=== PATIENT | female | born 1945 | race Caucasian/White ===

== ENCOUNTER 2021-12-22 13:03 | Outpatient (CLI) | payer MEDICARE, MEDICAID | END 2021-12-22 13:04 | disposition home or self-care (01) | LOC: CSHMAMMO 13:03 | PROVIDERS: ATTEND Family Medicine | DX: Z12.31 Encounter for screening mammogram for malignant neoplasm of breast (principal); R92.1 Mammographic calcification found on diagnostic imaging of breast; N63.20 Unspecified lump in the left breast, unspecified quadrant | CPT/HCPCS: 77063; 77067 ==

== ENCOUNTER 2022-01-09 17:19 | Observation (INO) | payer MEDICARE, MEDICAID ==
[2022-01-09 18:05] LABS: #Eosinphils 0.1 10x3/uL (0.0-0.5); #Neutrophils 6.6 10x3/uL (1.5-8.4); %Basophils 0.4 % (0.0-2.0); %Eosinophils 1.3 % (0.0-6.0); %Lymphocytes 26.8 % (18.0-47.0); %Monocytes 9.5 % (0.0-10.0); %Neutrophils 61.4 % (40.0-75.0); Hemoglobin 12.6 g/dL (12.0-15.5); Mean Corpuscular HGB CONC 32.6 g/dL (32.0-36.0); Mean Corpuscular Hemoglobin 20.8 pg (27.0-33.0); Mean Corpuscular Volume 63.8 fl (81.6-98.3); Platelet Count 225 10x3/uL (150-450); Red Blood Cell (RBC) Count 6.05 10x6/uL (3.90-5.03); White Blood Cell (WBC) Count 10.8 10x3/uL (3.5-10.5)
[2022-01-09 18:11] LABS: ALT (SGPT) 19 U/L (8-55); AST (SGOT) 22 U/L (5-34); Albumin 4.3 g/dL (3.4-4.8); Alkaline Phosphatase 76 U/L (40-110); Anion Gap 16 mmol/L (10-20); BUN (Urea Nitrogen) 34 mg/dL (9.8-20.1); Bilirubin, Total 2.1 mg/dL (0.2-1.2); Calc. Creatinine Clearance 0 mL/min (70-130); Calcium 9.5 mg/dL (7.8-10.44); Carbon Dioxide 26 mmol/L (23-31); Chloride 102 mmol/L (98-107); Estimated GFR 65; Globulin 3.3 g/dL (2.4-3.5); Potassium 3.5 mmol/L (3.5-5.1); Protein, Total 7.6 g/dL (5.8-8.1); Sodium 140 mmol/L (136-145)
[2022-01-09 18:20] LABS: Glucose 57 mg/dL (83-110)
[2022-01-09 18:51] LABS: Anisocytosis SLIGHT = 6-15 cells (100X) (0-5/hpf)
[2022-01-09 18:52] LABS: Basophilic Stippling SLIGHT = 1-2 cells (100X) (None Seen); Microcytosis MODERATE=15-30 cells (100X) (0-5/hpf); Ovalocytes SLIGHT = 2-5 cells (100X) (0-1/hpf); Polychromasia SLIGHT = 2-3 cells (100X) (0-2/hpf); Tear Drops SLIGHT = 2-5 cells (100X) (0-1/hpf)
[2022-01-09 18:54] LABS: Hypochromia SLIGHT = 6-15 cells (100X) (0-5/hpf); Large Platelets MODERATE; Platelet Morphology Comment Appears Adequate
[2022-01-09] MEDS ORDERED: Aspirin 325 MG TAB ONE (21:29)
[2022-01-09] MEDS ORDERED: Ondansetron PF 4 MG/2 ML Vial IVP PRN (21:52)
[2022-01-09] MEDS ORDERED: Senokot S 8.6-50 MG TAB PO PRN (21:52)
[2022-01-09] MEDS ORDERED: Dextrose 5% in Water 1,000 ML IV PRN (21:52)
[2022-01-09] MEDS ORDERED: Calcium Carbonate 500 MG ChewTAB PO PRN (21:52)
[2022-01-09] MEDS ORDERED: HumaLOG 300 UNITS/3 ML VIAL SC PRN (21:52)
[2022-01-09] MEDS ORDERED: Guaifenesin DM 100-10/5 ML UDCUP PO PRN (21:52)
[2022-01-09] MEDS ORDERED: Dextrose 50% Abboject 50 ML SYRINGE SLOW IVP PRN (21:52)
[2022-01-09] MEDS ORDERED: Acetaminophen 325 MG TAB PO PRN (21:52)
[2022-01-09] MEDS ORDERED: Zolpidem Tartrate 5 MG TAB PO PRN (21:52)
[2022-01-09 22:55] LABS: SARS-CoV-2 NAA Rapid Test Not Detected (NotDetected)
[2022-01-09 22:58] VITALS: BMI 42.4
[2022-01-09] MEDS ORDERED: Lactated Ringer's 1,000 ML IV SCH (23:59)
[2022-01-09] MEDS ORDERED: Potassium Chloride 20 MEQ TAB PO SCH (23:59)
[2022-01-10 04:26] LABS: Anion Gap 15 mmol/L (10-20); BUN (Urea Nitrogen) 32 mg/dL (9.8-20.1); Calc. Creatinine Clearance 96 mL/min (70-130); Carbon Dioxide 23 mmol/L (23-31); Cardiac Risk 5.4 (Less than 4.5); Chloride 105 mmol/L (98-107); Cholesterol 200 mg/dl (< 200 Desired); Estimated GFR 75; Glucose 138 mg/dL (83-110); HDL Cholesterol 37 mg/dL (>60 Neg Risk); Iron 73 ug/dL (50-170); Iron Binding Capacity, Total 305 mcg/dL (265-497); LDL Cholesterol, Calculated 106 mg/dL; Sodium 139 mmol/L (136-145); Triglycerides 283 mg/dL (Less than 150)
[2022-01-10 04:49] LABS: #Eosinphils 0.1 10x3/uL (0.0-0.5); #Neutrophils 5.5 10x3/uL (1.5-8.4); %Basophils 0.3 % (0.0-2.0); %Lymphocytes 32.1 % (18.0-47.0); %Monocytes 10.2 % (0.0-10.0); Hemoglobin 11.7 g/dL (12.0-15.5); Mean Corpuscular HGB CONC 31.6 g/dL (32.0-36.0); Mean Corpuscular Hemoglobin 20.6 pg (27.0-33.0); Mean Corpuscular Volume 65.3 fl (81.6-98.3); Platelet Count 203 10x3/uL (150-450); RBC Distribution Width 16.9 % (11.5-14.5); Red Blood Cell (RBC) Count 5.67 10x6/uL (3.90-5.03); White Blood Cell (WBC) Count 9.8 10x3/uL (3.5-10.5)
[2022-01-10 05:05] LABS: Ferritin 82.36 ng/mL (10-291); Thyroid Stimulating Hormone 1.1191 uIU/mL (0.35-4.94)
[2022-01-10] MEDS ORDERED: Levothyroxine Sodium 100 MCG TAB PO SCH (07:00)
[2022-01-10] MEDS ORDERED: Carvedilol 6.25 MG TAB PO SCH (08:00)
[2022-01-10] MEDS ORDERED: Enoxaparin Sodium 40 MG/0.4 ML SYRINGE SC SCH (09:00)
[2022-01-10] MEDS ORDERED: Aspirin 81 mg Enteric Coated Tablet PO SCH (09:00)
[2022-01-10] MEDS ORDERED: Losartan 25 MG TAB PO SCH ×2 (09:00→10:00)
[2022-01-10] MEDS ORDERED: Carvedilol 25 MG TAB PO SCH ×2 (10:00→17:00)
[2022-01-10] MEDS ORDERED: Hydrochlorothiazide 25 MG TAB PO SCH (10:00)
[2022-01-10 12:54] LABS: Hemoglobin A1c 6.9 % (4.0-6.0)
[2022-01-10] MEDS ORDERED: Lorazepam 1 MG TAB PO SCH (13:00)
[2022-01-10] MEDS ORDERED: Midazolam HCl 2 mg/2 ml Vial SLOW IVP PRN (13:43)
[2022-01-10 16:45] VITALS: BP 154/65; TEMP 97.5
[2022-01-10] MEDS ORDERED: Atorvastatin Calcium 20 MG TAB PO SCH (21:00)
[2022-01-10] MEDS ORDERED: HumuLIN 70/30 (300 UNITS/3 ML VIAL) FS SCH (21:00)
[2022-01-10] MEDS ORDERED: Atorvastatin Calcium 40 MG TAB PO SCH (21:00)
[2022-01-11] MEDS ORDERED: Levothyroxine Sodium 100 MCG TAB PO SCH (06:00)
[2022-01-11] MEDS ORDERED: Carvedilol 25 MG TAB PO SCH (09:00)
[2022-01-11] MEDS ORDERED: Hydrochlorothiazide 25 MG TAB PO SCH (09:00)
[2022-01-11] MEDS ORDERED: Losartan Potassium 50 MG TAB PO SCH (09:00)
== END 2022-01-10 18:45 | disposition home or self-care (01) ==
LOC: CSHERS 17:19 → CSHTELE 22:44
PROVIDERS: ADMIT Student in an Organized Health Care Education/Training Program; ATTEND Family Medicine
DX: R53.1 Weakness (principal); R42 Dizziness and giddiness; N19 Unspecified kidney failure; D50.9 Iron deficiency anemia, unspecified; R93.0 Abnormal findings on diagnostic imaging of skull and head, not elsewhere classified; I10 Essential (primary) hypertension; E11.649 Type 2 diabetes mellitus with hypoglycemia without coma; E78.5 Hyperlipidemia, unspecified; Z20.822 Contact with and (suspected) exposure to COVID-19; G47.33 Obstructive sleep apnea (adult) (pediatric); D72.829 Elevated white blood cell count, unspecified; Z79.4 Long term (current) use of insulin; Z87.891 Personal history of nicotine dependence; Z79.82 Long term (current) use of aspirin
CPT/HCPCS: 70450; 70553; 71045; 80048; 80053; 80061; 82728; 82962 ×2; 83036; 83540; 83550; 84443; 84484; 85025 ×2; 93005; 93306; 93880; 94760; 96372; 96374; 97535; 99285; G0378 ×3; U0002; 36415; 36416; J1650; J2250; J7120

== ENCOUNTER 2022-07-11 16:56 | Emergency (ER) | payer MEDICARE, MEDICAID ==
[2022-07-11] MEDS ORDERED: cefTRIAXone (ROCEPHIN) 1 GM VIAL ONE (18:42)
[2022-07-11] MEDS ORDERED: Sterile Water 10 ML ONE (18:42)
[2022-07-11] MEDS ORDERED: Dexamethasone 10 MG/ML VIAL ONE (18:42)
[2022-07-11 20:06] LABS: SARS-CoV-2 NAA Rapid Test Not Detected (NotDetected)
== END 2022-07-11 19:00 | disposition home or self-care (01) ==
LOC: CSHERS 16:56
DX: R05.1 Acute cough (principal); R06.02 Shortness of breath; Z20.822 Contact with and (suspected) exposure to COVID-19; E11.9 Type 2 diabetes mellitus without complications; I10 Essential (primary) hypertension; E03.9 Hypothyroidism, unspecified; Z79.84 Long term (current) use of oral hypoglycemic drugs; Z79.899 Other long term (current) drug therapy; Z79.82 Long term (current) use of aspirin
CPT/HCPCS: 0240U; 71045; 96372; J0696; J1100

== ENCOUNTER 2022-07-20 10:04 | Outpatient (CLI) | payer MEDICARE, MEDICAID | END 2022-07-20 10:05 | disposition home or self-care (01) | LOC: CSHRAD 10:04 | PROVIDERS: ATTEND Family Medicine | DX: M79.5 Residual foreign body in soft tissue (principal) ==

== ENCOUNTER 2023-02-06 12:47 | Outpatient (CLI) | payer MEDICARE, MEDICAID | END 2023-02-06 12:48 | disposition home or self-care (01) | LOC: CSHMAMMO 12:47 | PROVIDERS: ATTEND Family Medicine | DX: R92.1 Mammographic calcification found on diagnostic imaging of breast (principal) | CPT/HCPCS: 77066; G0279 ==

== ENCOUNTER 2024-02-25 15:04 | Emergency (ER) | payer MEDICARE, OTHER | END 2024-02-25 16:16 | disposition home or self-care (01) | LOC: CSHERS 15:04 | DX: S52.571A Other intraarticular fracture of lower end of right radius, initial encounter for closed fracture (principal); E11.9 Type 2 diabetes mellitus without complications; I10 Essential (primary) hypertension; W01.0XXA Fall on same level from slipping, tripping and stumbling without subsequent striking against object, initial encounter; Y93.41 Activity, dancing | CPT/HCPCS: 29125; 99283 ==